=== PATIENT | male | born 1980 | race African-American/Black ===

== ENCOUNTER 2021-12-03 10:43 | Outpatient (CLI) | payer BC | END 2021-12-03 10:44 | disposition home or self-care (01) | LOC: DTY/OP 10:43 | PROVIDERS: ATTEND Surgery | DX: E66.01 Morbid (severe) obesity due to excess calories (principal); Z68.42 Body mass index [BMI] 45.0-49.9, adult | CPT/HCPCS: 97802 ==

== ENCOUNTER 2022-04-05 13:51 | Outpatient (CLI) | payer BC | END 2022-04-05 13:52 | disposition home or self-care (01) | LOC: SCSRAD 13:51 | PROVIDERS: ATTEND Family Medicine | DX: Z01.811 Encounter for preprocedural respiratory examination (principal) | CPT/HCPCS: 71046 ==

== ENCOUNTER 2022-04-24 08:00 | Inpatient (IN) | payer OTHER ==
[2022-04-29 14:40] VITALS: BMI 43.0
[2022-05-01] MEDS ORDERED: Heparin 5,000 UNITS/ML VIAL ONE (06:17)
[2022-05-01] MEDS ORDERED: Bupivacaine 0.25% HCL 30 ML VIAL ONE (06:40)
[2022-05-01] MEDS ORDERED: Lidocaine 1% w/Epinephrine 1:100K 20 ML VIAL ONE (06:40)
[2022-05-01] MEDS ORDERED: fentaNYL Citrate/PF 100 MCG/2 ML SYRINGE ONE (06:55)
[2022-05-01] MEDS ORDERED: SUGAMMADEX SODIUM 200 MG/2 ML VIAL ONE (06:56)
[2022-05-01] MEDS ORDERED: HYDROmorphone 0.5 MG/0.5 ML SYRINGE ONE (06:56)
[2022-05-01] MEDS ORDERED: CEFAZOLIN 2 GM VIAL ONE (07:27)
[2022-05-01] MEDS ORDERED: Sodium Chloride 0.9% 100 ML ONE (07:27)
[2022-05-01] MEDS ORDERED: Rocuronium Bromide 10 MG/ML (10ML VIAL) ONE (07:34)
[2022-05-01] MEDS ORDERED: Ketorolac Tromethamine 30 MG/ML VIAL ONE (07:34)
[2022-05-01] MEDS ORDERED: PHENYLEPHRINE-NS 100 MCG/ML 10 ML SYRINGE ONE (07:34)
[2022-05-01] MEDS ORDERED: Ondansetron PF 4 MG/2 ML Vial ONE ×3 (07:34→09:52)
[2022-05-01] MEDS ORDERED: Lidocaine 1% PF 5 ML VIAL ONE (07:34)
[2022-05-01] MEDS ORDERED: Glycopyrrolate 0.2 MG/ML 5 ML SYRINGE ONE (07:34)
[2022-05-01] MEDS ORDERED: ePHEDrine 50 MG/ML VIAL ONE (07:34)
[2022-05-01] MEDS ORDERED: Dexamethasone 20 MG/5 ML VIAL ONE (07:34)
[2022-05-01] MEDS ORDERED: PROPOFOL 200 MG/20 ML VIAL ONE (07:34)
[2022-05-01] MEDS ORDERED: hydrALAZINE 20 MG/ML VIAL SLOW IVP PRN (08:53)
[2022-05-01] MEDS ORDERED: diphenhydrAMINE 50 MG/ML VIAL IVP PRN (08:53)
[2022-05-01] MEDS ORDERED: Dextrose 50% Abboject 50 ML SYRINGE SLOW IVP PRN (08:53)
[2022-05-01] MEDS ORDERED: Morphine 2 MG/ML VIAL SLOW IVP PRN (08:53)
[2022-05-01] MEDS ORDERED: Promethazine HCl 25 MG/ML VIAL IM PRN ×2 (08:53→09:08)
[2022-05-01] MEDS ORDERED: Ondansetron PF 4 MG/2 ML Vial IVP PRN (08:53)
[2022-05-01] MEDS ORDERED: Hydrocodone-Acetamin 15 ML UDCUP PO PRN (08:53)
[2022-05-01] MEDS ORDERED: Morphine 4 MG/ML VIAL SLOW IVP PRN (08:53)
[2022-05-01] MEDS ORDERED: Dextrose 5% in Water 1,000 ML IV PRN (08:53)
[2022-05-01] MEDS ORDERED: Meperidine HCl/PF 25 MG/ML VIAL SLOW IVP PRN (09:08)
[2022-05-01] MEDS ORDERED: Promethazine HCl 25 MG/ML VIAL IVPB PRN (09:08)
[2022-05-01] MEDS ORDERED: HYDROmorphone 2 MG/ML VIAL SLOW IVP PRN (09:08)
[2022-05-01] MEDS ORDERED: Ondansetron HCl/PF 4 MG/2 ML Vial IVP PRN (09:08)
[2022-05-01] MEDS ORDERED: Fentanyl 100 MCG/2 ML VIAL ONE (09:14)
[2022-05-01] MEDS: Pantoprazole 40 MG VIAL IVP SCH (11:01)
[2022-05-01] MEDS: Ketorolac Tromethamine 30 MG/ML VIAL IVP SCH ×3 (11:01→23:12)
[2022-05-01] MEDS: D5 1/2 NS w/20 mEq KCL 1,000 ML IV SCH ×2 (11:02→19:10)
[2022-05-01] MEDS: CEFAZOLIN 2 GM in Sodium Chloride 0.9% 100 ML IVPB SCH ×2 (15:59→23:12)
[2022-05-02] MEDS: D5 1/2 NS w/20 mEq KCL 1,000 ML IV SCH ×2 (03:55→09:13)
[2022-05-02] MEDS: Ketorolac Tromethamine 30 MG/ML VIAL IVP SCH ×2 (05:43→11:34)
[2022-05-02 07:52] VITALS: BP 153/88; TEMP 98
[2022-05-02] MEDS: Pantoprazole 40 MG VIAL IVP SCH (09:12)
== END 2022-05-02 11:30 | disposition home or self-care (01) | DRG 621 ==
LOC: SURG A 05-01 05:26
PROVIDERS: ADMIT Surgery; ATTEND Surgery
PROC: 0DB64Z3 Excision of Stomach, Percutaneous Endoscopic Approach, Vertical (ICD-10-PCS; principal; 2022-05-01)
DX: E66.01 Morbid (severe) obesity due to excess calories (principal); Z68.41 Body mass index [BMI] 40.0-44.9, adult; E78.5 Hyperlipidemia, unspecified; F17.210 Nicotine dependence, cigarettes, uncomplicated; Z98.890 Other specified postprocedural states; Z82.49 Family history of ischemic heart disease and other diseases of the circulatory system; Z82.3 Family history of stroke
CPT/HCPCS: 88307; 93005; 93010; C9113; J0690; J1100; J1170; J1644; J1885; J2405; J2704; J3010; J3480; J3490; S0020

== ENCOUNTER 2022-04-26 08:06 | Outpatient (CLI) | payer BC | END 2022-04-26 08:07 | disposition home or self-care (01) | LOC: LABBT 08:06 | PROVIDERS: ATTEND Surgery | DX: E66.01 Morbid (severe) obesity due to excess calories (principal); Z20.822 Contact with and (suspected) exposure to COVID-19 | CPT/HCPCS: U0003; U0005 ==

== ENCOUNTER 2022-08-12 09:26 | Outpatient (CLI) | payer BC ==
[2022-08-12] MEDS ORDERED: Iopamidol-370 76% 500 ML 1 ML ONE (12:03)
== END 2022-08-12 09:27 | disposition home or self-care (01) ==
LOC: BICCT 09:26
PROVIDERS: ATTEND Surgery
DX: R16.0 Hepatomegaly, not elsewhere classified (principal); R10.13 Epigastric pain; Z98.890 Other specified postprocedural states
CPT/HCPCS: 74178; Q9967